=== PATIENT | female | born 2000 | race Caucasian/White ===

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

== ENCOUNTER 2025-04-05 07:14 | Day surgery (SDC) | payer BC, OTHER ==
[~2025-04-05 07:14] MED LIST: Sodium Chloride 0.9% 10 ML Syringe FLUSH PRN; Sodium Chloride 0.9% 10 ML Syringe FLUSH SCH; propofoL 500 MG/50 ML 50 ML ONE
[2025-04-05] MEDS: Lactated Ringers 1,000 ML IV SCH (07:30)
[2025-04-05] MEDS ORDERED: Dexamethasone 4 MG/ML SDV ONE (08:20)
[2025-04-05] MEDS ORDERED: Glycopyrrolate 0.2 MG/ML 2 ML SDV ONE (08:34)
[2025-04-05] MEDS ORDERED: Esmolol 100 MG/10 ML SDV ONE (08:35)
[2025-04-05] MEDS ORDERED: Metoprolol Tartrate 5 MG/5 ML SDV ONE (08:36)
[2025-04-05] MEDS ORDERED: fentaNYL 100 MCG/2 ML SDV ONE (08:40)
[2025-04-05 10:49] VITALS: PULSE 90
[2025-04-05 10:50] VITALS: BP 110/70
== END 2025-04-05 10:40 | disposition home or self-care (01) ==
LOC: JD.SDS 07:14
PROVIDERS: ATTEND Surgery
DX: K52.9 Noninfective gastroenteritis and colitis, unspecified (principal); K31.89 Other diseases of stomach and duodenum; D64.9 Anemia, unspecified; K44.9 Diaphragmatic hernia without obstruction or gangrene; K29.80 Duodenitis without bleeding; K29.70 Gastritis, unspecified, without bleeding; K92.1 Melena; F17.210 Nicotine dependence, cigarettes, uncomplicated; Z80.0 Family history of malignant neoplasm of digestive organs; Z79.899 Other long term (current) drug therapy
CPT/HCPCS: 43239; 45380; 81025; J1100; J1596; J1805; J2003; J2704; J3010; J3490; J7120; 00813